=== PATIENT | female | born 1990 | race Caucasian/White ===

== ENCOUNTER 2018-06-16 02:12 | Inpatient (IN) | payer BC ==
[2018-06-16] MEDS ORDERED: Nalbuphine 10 MG/1 ML Vial IVPUSH PRN (02:49)
[2018-06-16] MEDS ORDERED: Tranexamic Acid 1,000 MG in Sodium Chloride 0.9% 100 ML IV PRN (02:49)
[2018-06-16] MEDS ORDERED: Butorphanol 1 MG/ML SDV IVPUSH PRN (02:49)
[2018-06-16] MEDS ORDERED: Carboprost Tromethamine 250 MCG/1 ML Amp IM PRN (02:49)
[2018-06-16] MEDS ORDERED: Water For Irrigation,Sterile 1,000 ML Container IRR PRN (02:49)
[2018-06-16] MEDS ORDERED: Misoprostol 200 MCG Tab PO PRN (02:49)
[2018-06-16] MEDS ORDERED: Sodium Chloride 0.9% 2.5 ML Syringe FLUSH PRN (02:49)
[2018-06-16] MEDS ORDERED: Sodium Chloride 0.9% 10 ML Syringe FLUSH PRN (02:49)
[2018-06-16] MEDS ORDERED: Lidocaine 1% 50 ML MDV INJECT PRN (02:49)
[2018-06-16] MEDS ORDERED: Methylergonovine 0.2 MG/1 ML Amp IM PRN (02:49)
[2018-06-16] MEDS ORDERED: Oxytocin/0.9 % Sodium Chloride 30 UNIT/500 ML BAG IV SCH (03:00)
[2018-06-16] MEDS: Lactated Ringers 1,000 ML IV SCH ×3 (03:05→06:08)
[2018-06-16] MEDS ORDERED: Ropivacaine 0.2% 2 MG/ML 20 ML SDV ONE (04:58)
[2018-06-16] MEDS ORDERED: ePHEDrine 50 MG/ML SDV ONE (05:31)
--- NOTE | 2018-06-16 05:45 | PCM.PREANE ---
Preanesthetic Assessment - Procedure Proposed Procedure: Labor epidural - Anesthesia/Transfusion/Family Hx Anesthesia History: Prior Anesthesia Without Reaction Family History of Anesthesia Reaction: No Transfusion History: No Prior Transfusion(s) - Review of Systems Other: Reports: None - Physical Assessment Height: 5 ft 5 in Weight: 86.636 kg ASA Class: 2 Mental Status: Alert & Oriented x3 Airway Class: Mallampati = 1 Dentition: Reports: Normal Dentition Thyro-Mental Finger Breadths: 3 Mouth Opening Finger Breadths: 3 ROM/Head Extension: Full - Lab Values: Laboratory Last Values WBC 10.45 K/uL (4.0-11.0) 06/16/18 03:01 RBC 4.16 M/uL (4.30-5.90) L 06/16/18 03:01 Hgb 11.6 g/dL (12.0-16.0) L 06/16/18 03:01 Hct 34.7 % (36.0-46.0) L 06/16/18 03:01 MCV 83.4 fL (80.0-98.0) 06/16/18 03:01 MCH 27.9 pg (27.0-32.0) 06/16/18 03:01 MCHC 33.4 g/dL (31.0-37.0) 06/16/18 03:01 RDW Std Deviation 42.1 fl (28.0-62.0) 06/16/18 03:01 RDW Coeff of Long 14 % (11.0-15.0) 06/16/18 03:01 Plt Count 215 K/uL (150-400) 06/16/18 03:01 MPV 8.90 fL (7.40-12.00) 06/16/18 03:01 Nucleated RBC % 0.0 /100WBC 06/16/18 03:01 Nucleated RBCs # 0 K/uL 06/16/18 03:01 Blood Type AB POSITIVE 06/16/18 03:01 Antibody Screen NEGATIVE 06/16/18 03:01 - Allergies Allergies/Adverse Reactions: Allergies Allergy/AdvReac Type Severity Reaction Status Date / Time gluten Allergy Diarrhea Verified 06/16/18 03:19 - Blood Blood Available: Yes Product(s) Available: PRBC - Acknowledgements Anesthesia Type Planned: Epidural Pt an Appropriate Candidate for the Planned Anesthesia: Yes Alternatives and Risks of Anesthesia Discussed w Pt/Guardian: Yes Pt/Guardian Understands and Agrees with Anesthesia Plan: Yes PreAnesthesia Questionnaire Gastrointestinal History: Reports: Celiac Disease 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: Musculoskeletal History: Reports: Other (See Below) (see radiology reports attatched to anesthesia record) - Past Surgical History Musculoskeletal Surgical History: Reports: Ganglion Cyst - Past Imaging History Past Imaging History: Reports: Other (See Below) (see attatched xray sheets attatched to Anesthesia record regarding lumbar spine) - SUBSTANCE USE Smoking Status *Q: Never Smoker Second Hand Smoke Exposure: No Recreational Drug Use History: No - CURRENT (IN HOUSE) MEDS Current Meds: Current Medications Butorphanol Tartrate (Stadol) 1 mg IVPUSH Q1H PRN PRN Reason: Pain Carboprost Tromethamine (Hemabate Ds) 250 mcg IM ASDIRECTED PRN PRN Reason: Post Hemorrhage Tranexamic Acid 1,000 mg/ (Sodium Chloride) 110 mls @ 660 mls/hr IV ONETIME PRN PRN Reason: Bleeding Lactated Ringer's (Ringers, Lactated) 1,000 mls @ 150 mls/hr IV ASDIRECTED [facility] Last Admin: 06/16/18 05:06 Dose: 999 mls/hr Oxytocin/Sodium Chloride (Oxytocin 30 Unit/500 Ml-Ns) 30 unit in 500 mls @ 500 mls/hr IV TITRATE [facility] Last Admin: 06/16/18 05:25 Dose: 2 mls/hr Lidocaine HCl (Xylocaine 1%) 50 ml INJECT ONETIME PRN PRN Reason: Laceration repair Methylergonovine Maleate (Methergine) 0.2 mg IM ASDIRECTED PRN PRN Reason: Post Hemorrhage Misoprostol (Cytotec) 200 mcg PO ONETIME PRN PRN Reason: Post Hemorrhage Nalbuphine HCl (Nubain) 10 mg IVPUSH Q1H PRN PRN Reason: Pain (severe 7-10) Sodium Chloride (Saline Flush) 10 ml FLUSH ASDIRECTED PRN PRN Reason: Keep Vein Open Sodium Chloride (Saline Flush) 2.5 ml FLUSH ASDIRECTED PRN PRN Reason: Keep Vein Open Sterile Water (Sterile Water For Irrigation) 1,000 ml IRR ASDIRECTED PRN PRN Reason: delivery Discontinued Medications Ephedrine Sulfate (Ephedrine Sulfate) Confirm Administered Dose 50 mg .ROUTE .[email or web address]-MED ONE Stop: 06/16/18 05:32 Fentanyl/Bupivacaine HCl (Ebqpcruw-Mhhrt-Op 2 Mcg/Ml-0.125%) Confirm Administered Dose 100 mls @ as directed EP .[employer]-MED ONE Stop: 06/16/18 04:59 Ropivacaine (Naropin 0.2%) Confirm Administered Dose 20 ml .ROUTE .[employer]-MED ONE Stop: 06/16/18 04:59
--- NOTE | 2018-06-16 10:09 | PCM.SN ---
- Free Text/Narrative Note: to see pt for increased perineal pain during labor w epidural. Now 8 + dilated. Epidural placed at t11, with good pain controll until this point. 15 ml bolus of 0.125% bupivicain with fentantl given through epidural catheter.
[2018-06-16] MEDS ORDERED: Oxytocin 10 Units/1 ML SDV ONE (10:26)
[2018-06-16] MEDS ORDERED: Acetaminophen 500 MG Tab PO PRN ×2 (10:45)
[2018-06-16] MEDS ORDERED: Witch Hazel Medicated Pads 40/Jar TOP PRN (10:45)
[2018-06-16] MEDS ORDERED: Ibuprofen 400 MG Tab PO PRN (10:45)
[2018-06-16] MEDS ORDERED: Docusate Sodium 100 MG Cap PO PRN (10:45)
[2018-06-16] MEDS ORDERED: Benzocaine/Menthol 20%-0.5% Spray 78 GM Cannister TOP PRN (10:45)
[2018-06-16] MEDS ORDERED: oxyCODONE 5 MG Tab PO PRN (10:45)
[2018-06-16] MEDS ORDERED: Bisacodyl 10 MG Supp RECTAL PRN (10:45)
[2018-06-16] MEDS ORDERED: Lanolin 100% Cream 7 GM Tube TOP PRN (10:45)
[2018-06-16] MEDS ORDERED: Ondansetron 4 MG Tab.DIS PO PRN (11:07)
--- NOTE | 2018-06-16 11:36 | OR ---
SURGEON: Marsha Oliver M.D. DATE OF PROCEDURE: 06/16/2018 PREOPERATIVE DIAGNOSES: 1. A 39 and 4 week intrauterine . 2. Spontaneous rupture of membranes. POSTOPERATIVE DIAGNOSES: 1. A 39 and 4 week intrauterine . 2. Spontaneous rupture of membranes. PROCEDURE: Spontaneous vaginal delivery with first-degree right labial laceration repaired. TECHNICAL PUBLICATIONS MANAGER: DEVON Menard. ANESTHESIA: Epidural. ESTIMATED BLOOD LOSS: 300 mL. FINDINGS: Viable female. score scores 8 at 1 minute, 9 at 5 minutes. Weight is pending. Spontaneous delivery, intact placenta, 3-vessel cord. DISPOSITION: Infant to nursery, mom in LDRP, stable. PROCEDURE IN DETAIL: Denisse is a 27-year-old, G3, P2, at 39 and 4 weeks gestational age, who presents on the early childhood education coordinator of 06/16/2018 with leakage of fluid. She was found to be spontaneously ruptured with clear fluid. She was already scheduled for an elective induction of labor today. Therefore, she was monitored and there was no evidence of active labor as she was found to be approximately 3 cm. She was initiated on Pitocin augmentation shortly after 5:00 a.m. She responded nicely to this, became increasingly uncomfortable, underwent regional anesthesia in the form of epidural and shortly before 9:00 a.m. was found to be 5 cm, 90% effaced, -1 station. She continued to labor through the morning hours, and shortly near 10:00 a.m., she was found to be complete, 100% effaced, +1 station, and feeling the urge to push. I was called for delivery. Upon my presentation, patient was placed in modified dorsal lithotomy position, was prepped and draped in usual aseptic manner. With the next 2 to 3 contractions was able to push to deliver the head to a +4 station followed by delivery of the infant's head, anterior shoulder, posterior shoulder, and remainder of the body without difficulty. A shoulder cord was noted to be present and was reduced manually. The infant's oropharynx and nares was bulb suctioned, cord was clamped x2 and cut. was handed off to her mother with the attending nursing staff at her side. Cord arterial, cord venous, cord blood sampling was obtained. Light suprapubic pressure was applied while the placenta was delivered spontaneously intact. Vigorous fundal uterine massage was then applied while 10 units of Pitocin was delivered IM as her IV was not working at this time. The patient tolerated the procedure well. Hemostasis appeared evident. Sponge count was correct. The patient remained in LDRP, infant to nursery. Hemostasis evident. RAMONA ELLER /[id number]
--- NOTE | 2018-06-16 12:59 | PCM48HPAN ---
Post Anesthesia Note - EVALUATION WITHIN 48HRS OF ANESTHETIC Vital Signs in Normal Range: Yes Patient Participated in Evaluation: Yes Respiratory Function Stable: Yes Airway Patent: Yes Cardiovascular Function Stable: Yes Hydration Status Stable: Yes Pain Control Satisfactory: Yes Nausea and Vomiting Control Satisfactory: Yes Mental Status Recovered: Yes - COMMENTS/OBSERVATIONS Free Text/Narrative:: Denies headache. States she had couple of hours where she feels the epidural didn't work. No other complaints at this time.
[2018-06-16] MEDS: Ibuprofen 800 MG Tab PO PRN (19:14)
[2018-06-17] MEDS: Ibuprofen 800 MG Tab PO PRN ×2 (03:16→10:01)
--- NOTE | 2018-06-17 08:02 | PCM.PNPP ---
<Malika Maravilla - Last Filed: 06/17/18 07:59> - General Info Date of Service: 06/17/18 Functional Status: Reports: Pain Controlled, Tolerating Diet, Ambulating, Urinating - Review of Systems General: Denies: Fever, Weakness, Fatigue Pulmonary: Denies: Shortness of Breath, Pleuritic Chest Pain, Cough Cardiovascular: Denies: Chest Pain, Palpitations, Dyspnea on Exertion Gastrointestinal: Denies: Abdominal Pain Genitourinary: Denies: Dysuria - General Info Date of Service: 06/17/18 - Patient Data Vital Signs - Most Recent: Last Vital Signs Temp 36.8 C 06/17/18 05:09 Pulse 63 06/17/18 05:09 Resp 17 06/17/18 05:09 BP 95/64 06/17/18 05:09 Pulse Ox 98 06/17/18 05:09 Weight - Most Recent: 86.636 kg Lab Results - Last 24 Hours: Laboratory Results - last 24 hr 06/16/18 06/17/18 Range/Units 10:15 05:25 Hgb 10.8 L (12.0-16.0) g/dL Hct 32.3 L (36.0-46.0) % Cord ABG pH 7.239 (7.18-7.38) Cord ABG Base Excess -3 (-10--2) Cord VBG pH 7.406 (7.25-7.45) Cord VBG Base Excess -2 (-10--2) Med Orders - Current: Current Medications Acetaminophen (Tylenol Extra Strength) 500 mg PO Q4H PRN PRN Reason: Pain Acetaminophen (Tylenol Extra Strength) 1,000 mg PO Q4H PRN PRN Reason: Pain Benzocaine/Menthol (Dermoplast Pain Relief 20%-0.5% Trion) 78 gm TOP ASDIRECTED PRN PRN Reason: Perineal Comfort Measure Bisacodyl (Dulcolax) 10 mg RECTAL ONETIME PRN PRN Reason: Constipation Docusate Sodium (Colace) 100 mg PO BID PRN PRN Reason: Constipation Emollient Ointment (Lansinoh Hpa) 0 gm TOP ASDIRECTED PRN PRN Reason: Sore Nipples Ibuprofen (Motrin) 400 mg PO Q4H PRN PRN Reason: Pain Ibuprofen (Motrin) 800 mg PO Q6H PRN PRN Reason: Pain Last Admin: 06/17/18 03:16 Dose: 800 mg Ondansetron HCl (Zofran Odt) 4 mg PO Q6H PRN PRN Reason: Nausea/Vomiting Last Admin: 06/16/18 11:29 Dose: 4 mg Oxycodone HCl (Oxycodone) 5 mg PO Q2H PRN PRN Reason: Pain Witch Eve (Tucks) 1 pad TOP ASDIRECTED PRN PRN Reason: comfort care Discontinued Medications Butorphanol Tartrate (Stadol) 1 mg IVPUSH Q1H PRN PRN Reason: Pain Carboprost Tromethamine (Hemabate Ds) 250 mcg IM ASDIRECTED PRN PRN Reason: Post Hemorrhage Ephedrine Sulfate (Ephedrine Sulfate) Confirm Administered Dose 50 mg .ROUTE .STK-MED ONE Stop: 06/16/18 05:32 Tranexamic Acid 1,000 mg/ (Sodium Chloride) 110 mls @ 660 mls/hr IV ONETIME PRN PRN Reason: Bleeding Lactated Ringer's (Ringers, Lactated) 1,000 mls @ 150 mls/hr IV ASDIRECTED [facility] Last Admin: 06/16/18 06:08 Dose: 125 mls/hr Oxytocin/Sodium Chloride (Oxytocin 30 Unit/500 Ml-Ns) 30 unit in 500 mls @ 500 mls/hr IV TITRATE [facility] Last Infusion: 06/16/18 07:26 Dose: 10 mls/hr Fentanyl/Bupivacaine HCl (Phkusrbq-Ssimk-Fh 2 Mcg/Ml-0.125%) Confirm Administered Dose 100 mls @ as directed EP .STK-MED ONE Stop: 06/16/18 04:59 Lidocaine HCl (Xylocaine 1%) 50 ml INJECT ONETIME PRN PRN Reason: Laceration repair Methylergonovine Maleate (Methergine) 0.2 mg IM ASDIRECTED PRN PRN Reason: Post Hemorrhage Misoprostol (Cytotec) 200 mcg PO ONETIME PRN PRN Reason: Post Hemorrhage Nalbuphine HCl (Nubain) 10 mg IVPUSH Q1H PRN PRN Reason: Pain (severe 7-10) Oxytocin (Pitocin) Confirm Administered Dose 10 unit .ROUTE .STK-MED ONE Stop: 06/16/18 10:27 Last Admin: 06/16/18 10:28 Dose: 10 unit Ropivacaine (Naropin 0.2%) Confirm Administered Dose 20 ml .ROUTE .STK-MED ONE Stop: 06/16/18 04:59 Sodium Chloride (Saline Flush) 10 ml FLUSH ASDIRECTED PRN PRN Reason: Keep Vein Open Sodium Chloride (Saline Flush) 2.5 ml FLUSH ASDIRECTED PRN PRN Reason: Keep Vein Open Sterile Water (Sterile Water For Irrigation) 1,000 ml IRR ASDIRECTED PRN PRN Reason: delivery - Infant Interaction Infant Disposition, : [place] in Room with Family Infant Interaction: Not Applicable Infant Feeding: Breastfed Infant; Nursed Well Support Person: - Recovery Exam Fundal Tone: Firm Fundal Level: At Umbilicus Fundal Placement: Midline Lochia Amount: Scant Lochia Color: Rubra/Red Perineum Description: Other (see below) Other Perinuem Description: 1st deg laceration Episiotomy/Laceration: Approximated Bladder Status: Voiding - Exam General: Alert, Oriented Lungs: Clear to Auscultation, Normal Respiratory Effort Cardiovascular: Regular Rate, Regular Rhythm GI/Abdominal Exam: Normal Bowel Sounds, Soft, Non-Tender, No Distention, No Mass , Pelvis Stable Extremities: Normal Inspection, Normal Capillary Refill, Pedal Edema (trace) Skin: Warm, Dry, Intact - Problem List & Annotations (1) Vaginal delivery SNOMED Code(s): 425063855 Code(s): O80 - ENCOUNTER FOR FULL-TERM UNCOMPLICATED DELIVERY Status: Acute Current Visit: Yes - Problem List Review Problem List Initiated/Reviewed/Updated: Yes - Assessment Assessment:: PPD #1 s/p . Minimal pain and lochia. Breast feeding well. Discharge home today. - Plan Plan:: Discharge instructions reviewed. Pelvic rest for 6 weeks. Continue PNV while breast feeding. Can use OTC ibuprofen/tylenol as needed for pain. Instructed patient to call if she develops fever greater than 101 or bleeding through a large pad an hour. F/U with [facility] in 6 weeks. <Marsha Oliver - Last Filed: 06/17/18 09:04> - Patient Data Vital Signs - Most Recent: Last Vital Signs Temp 36.8 C 06/17/18 05:09 Pulse 63 06/17/18 05:09 Resp 17 06/17/18 05:09 BP 95/64 06/17/18 05:09 Pulse Ox 98 06/17/18 05:09 Lab Results - Last 24 Hours: Laboratory Results - last 24 hr 06/16/18 06/17/18 Range/Units 10:15 05:25 Hgb 10.8 L (12.0-16.0) g/dL Hct 32.3 L (36.0-46.0) % Cord ABG pH 7.239 (7.18-7.38) Cord ABG Base Excess -3 (-10--2) Cord VBG pH 7.406 (7.25-7.45) Cord VBG Base Excess -2 (-10--2) Med Orders - Current: Current Medications Acetaminophen (Tylenol Extra Strength) 500 mg PO Q4H PRN PRN Reason: Pain Acetaminophen (Tylenol Extra Strength) 1,000 mg PO Q4H PRN PRN Reason: Pain Benzocaine/Menthol (Dermoplast Pain Relief 20%-0.5% Trion) 78 gm TOP ASDIRECTED PRN PRN Reason: Perineal Comfort Measure Bisacodyl (Dulcolax) 10 mg RECTAL ONETIME PRN PRN Reason: Constipation Docusate Sodium (Colace) 100 mg PO BID PRN PRN Reason: Constipation Emollient Ointment (Lansinoh Hpa) 0 gm TOP ASDIRECTED PRN PRN Reason: Sore Nipples Ibuprofen (Motrin) 400 mg PO Q4H PRN PRN Reason: Pain Ibuprofen (Motrin) 800 mg PO Q6H PRN PRN Reason: Pain Last Admin: 06/17/18 03:16 Dose: 800 mg Ondansetron HCl (Zofran Odt) 4 mg PO Q6H PRN PRN Reason: Nausea/Vomiting Last Admin: 06/16/18 11:29 Dose: 4 mg Oxycodone HCl (Oxycodone) 5 mg PO Q2H PRN PRN Reason: Pain Witch Eve (Tucks) 1 pad TOP ASDIRECTED PRN PRN Reason: comfort care Discontinued Medications Butorphanol Tartrate (Stadol) 1 mg IVPUSH Q1H PRN PRN Reason: Pain Carboprost Tromethamine (Hemabate Ds) 250 mcg IM ASDIRECTED PRN PRN Reason: Post Hemorrhage Ephedrine Sulfate (Ephedrine Sulfate) Confirm Administered Dose 50 mg .ROUTE .STK-MED ONE Stop: 06/16/18 05:32 Tranexamic Acid 1,000 mg/ (Sodium Chloride) 110 mls @ 660 mls/hr IV ONETIME PRN PRN Reason: Bleeding Lactated Ringer's (Ringers, Lactated) 1,000 mls @ 150 mls/hr IV ASDIRECTED [facility] Last Admin: 06/16/18 06:08 Dose: 125 mls/hr Oxytocin/Sodium Chloride (Oxytocin 30 Unit/500 Ml-Ns) 30 unit in 500 mls @ 500 mls/hr IV TITRATE [facility] Last Infusion: 06/16/18 07:26 Dose: 10 mls/hr Fentanyl/Bupivacaine HCl (Opqhihop-Hcbcr-Dr 2 Mcg/Ml-0.125%) Confirm Administered Dose 100 mls @ as directed EP .[employer]-MED ONE Stop: 06/16/18 04:59 Lidocaine HCl (Xylocaine 1%) 50 ml INJECT ONETIME PRN PRN Reason: Laceration repair Methylergonovine Maleate (Methergine) 0.2 mg IM ASDIRECTED PRN PRN Reason: Post Hemorrhage Misoprostol (Cytotec) 200 mcg PO ONETIME PRN PRN Reason: Post Hemorrhage Nalbuphine HCl (Nubain) 10 mg IVPUSH Q1H PRN PRN Reason: Pain (severe 7-10) Oxytocin (Pitocin) Confirm Administered Dose 10 unit .ROUTE .[employer] ONE Stop: 06/16/18 10:27 Last Admin: 06/16/18 10:28 Dose: 10 unit Ropivacaine (Naropin 0.2%) Confirm Administered Dose 20 ml .ROUTE .[employer]-MED ONE Stop: 06/16/18 04:59 Sodium Chloride (Saline Flush) 10 ml FLUSH ASDIRECTED PRN PRN Reason: Keep Vein Open Sodium Chloride (Saline Flush) 2.5 ml FLUSH ASDIRECTED PRN PRN Reason: Keep Vein Open Sterile Water (Sterile Water For Irrigation) 1,000 ml IRR ASDIRECTED PRN PRN Reason: delivery - My Orders Last 24 Hours: My Active Orders 06/16/18 10:45 Patient Status [ADT] Routine May Shower [RC] ASDIRECTED Up ad Antonia [RC] ASDIRECTED Vital Signs [RC] PER UNIT ROUTINE Acetaminophen [Tylenol Extra Strength] 1,000 mg PO Q4H PRN Acetaminophen [Tylenol Extra Strength] 500 mg PO Q4H PRN Benzocaine/Menthol [Dermoplast Pain Relief 20%-0.5% Trion] 78 gm TOP ASDIRECTED PRN Bisacodyl [Dulcolax] 10 mg RECTAL ONETIME PRN Docusate Sodium [Colace] 100 mg PO BID PRN Ibuprofen [Motrin] 400 mg PO Q4H PRN Ibuprofen [Motrin] 800 mg PO Q6H PRN Lanolin [Lansinoh HPA] See Dose Instructions TOP ASDIRECTED PRN Witch Eve [Tucks] 1 pad TOP ASDIRECTED PRN oxyCODONE 5 mg PO Q2H PRN Assess Lochia [WOMSER] Per Unit Routine Assess Uterine Involution [WOMSER] Per Unit Routine Peripheral IV Discontinue [OM.PC] Routine Resuscitation Status Routine 06/16/18 11:07 Ondansetron [Zofran ODT] 4 mg PO Q6H PRN 06/16/18 Lunch Regular Diet [DIET] - Plan Plan:: Patient seen and examined--agree with above.
== END 2018-06-17 12:15 | disposition home or self-care (01) | DRG 560 ==
LOC: MW.OBCHECK 02:12 → MW.OB 02:15 → MW.OBCHECK 02:49 → MW.OB 02:49 → OBSVTOIN 10:45 → MW.OB 15:38
PROVIDERS: ADMIT Obstetrics & Gynecology; ATTEND Obstetrics & Gynecology
PROC: 10E0XZZ Delivery of Products of Conception, External Approach (ICD-10-PCS; principal; 2018-06-16)
PROC: 3E033VJ Introduction of Other Hormone into Peripheral Vein, Percutaneous Approach (ICD-10-PCS; 2018-06-16)
PROC: 0HQ9XZZ Repair Perineum Skin, External Approach (ICD-10-PCS; 2018-06-16)
PROC: 00HU33Z Insertion of Infusion Device into Spinal Canal, Percutaneous Approach (ICD-10-PCS; 2018-06-16)
DX: O42.02 Full-term premature rupture of membranes, onset of labor within 24 hours of rupture (principal); O70.0 First degree perineal laceration during delivery; Z3A.39 39 weeks gestation of pregnancy; Z37.0 Single live birth
CPT/HCPCS: 36415; 59025; 59409; 82803; 85014; 85018; 85027; 86850; 86900; 86901; A9270-GY; J2590; J2795; J7120

== ENCOUNTER 2020-11-18 12:30 | Inpatient (IN) | payer BC ==
[2020-11-18] MEDS: Lactated Ringers 1,000 ML IV SCH ×3 (13:45→19:22)
[2020-11-18] MEDS ORDERED: Ondansetron 4 MG/2 ML SDV IVPUSH PRN (15:21)
[2020-11-18] MEDS ORDERED: Sodium Chloride 0.9% 2.5 ML Syringe FLUSH PRN (15:21)
[2020-11-18] MEDS ORDERED: Tranexamic Acid 1,000 MG in Sodium Chloride 0.9% 100 ML IV PRN (15:21)
[2020-11-18] MEDS ORDERED: Water For Irrigation,Sterile 1,000 ML Container IRR PRN (15:21)
[2020-11-18] MEDS ORDERED: Misoprostol 200 MCG Tab PO PRN (15:21)
[2020-11-18] MEDS ORDERED: Terbutaline 1 MG/ML SDV SUBCUT PRN (15:21)
[2020-11-18] MEDS ORDERED: Methylergonovine 0.2 MG/1 ML Amp IM PRN (15:21)
[2020-11-18] MEDS ORDERED: Sodium Chloride 0.9% 10 ML SDV IV PRN (15:21)
[2020-11-18] MEDS ORDERED: Carboprost Tromethamine 250 MCG/1 ML Amp IM PRN (15:21)
[2020-11-18] MEDS ORDERED: Sodium Chloride 0.9% 10 ML Syringe FLUSH PRN (15:21)
[2020-11-18] MEDS ORDERED: Butorphanol 1 MG/ML SDV IVPUSH PRN (15:21)
[2020-11-18] MEDS ORDERED: Lidocaine 1% 50 ML MDV INJECT PRN (15:21)
[2020-11-18] MEDS ORDERED: Oxytocin/0.9 % Sodium Chloride 30 UNIT/500 ML BAG IV SCH (15:30)
[2020-11-18] MEDS ORDERED: Oxytocin/Lactated Ringers 30 UNIT/500 ML BAG IV SCH (15:30)
[2020-11-18] MEDS ORDERED: fentaNYL 100 MCG/2 ML SDV ONE (19:14)
[2020-11-18] MEDS ORDERED: Bupivicaine/fentaNYL/NS 250 ML ONE (19:15)
[2020-11-19] MEDS ORDERED: Docusate Sodium 100 MG Cap PO PRN (01:36)
[2020-11-19] MEDS ORDERED: oxyCODONE 5 MG Tab PO PRN (01:36)
[2020-11-19] MEDS ORDERED: Lanolin 100% Cream 7 GM Tube TOP PRN (01:36)
[2020-11-19] MEDS ORDERED: Benzocaine/Menthol 20%-0.5% Spray 78 GM Cannister TOP PRN (01:36)
[2020-11-19] MEDS ORDERED: Acetaminophen 500 MG Tab PO PRN (01:36)
[2020-11-19] MEDS ORDERED: Ibuprofen 400 MG Tab PO PRN (01:36)
[2020-11-19] MEDS ORDERED: Ondansetron 4 MG/2 ML SDV IVPUSH PRN (01:36)
[2020-11-19] MEDS ORDERED: Witch Hazel Medicated Pads 40/Jar TOP PRN (01:36)
[2020-11-19] MEDS ORDERED: Bisacodyl 10 MG Supp RECTAL PRN (01:36)
--- NOTE | 2020-11-19 01:45 | PCM.OPNOTE ---
- General Post-Op/Procedure Note Date of Surgery/Procedure: 11/19/20 Operative Procedure(s): /1st left labial laceration Findings: Viable male APGARs 8, 9 weight 3500 gm. Spontaneous delivery intact placenta with 3V cord Pre Op Diagnosis: 39 week IUP. Elective IOL Post-Op Diagnosis: Same Anesthesia Technique: Epidural Primary Surgeon: Marsha Oliver EBL in mLs: 200 Complications: None Condition: Good Free Text/Narrative:: Intake & Output 11/18/20 11/18/20 11/19/20 14:59 22:59 06:59 Intake Total 999 Balance 999 Dictation [id number]
--- NOTE | 2020-11-19 03:13 | OR ---
SURGEON: Marsha Oliver M.D. DATE OF PROCEDURE: 11/19/2020 PREOPERATIVE DIAGNOSES: 1. A 39-week intrauterine . 2. Elective induction of labor. POSTOPERATIVE DIAGNOSES: 1. A 39-week intrauterine . 2. Elective induction of labor. PROCEDURE: Spontaneous vaginal delivery, first-degree right labial laceration repair. PRIMARY SURGEON: Marsha Oliver M.D. ANESTHESIA: Epidural. ESTIMATED BLOOD LOSS: 200 mL. COMPLICATIONS: None known. FINDINGS: Viable male. scores 8 at one minute and 9 at five minutes. Weight of 3500 g. Spontaneous delivery, intact placenta, 3-vessel cord. DISPOSITION: Infant to nursery. Mom in LDRP. PROCEDURE DETAILS: The patient is a 30-year-old female, G4, P3, at 39 weeks' gestational age, who presents for scheduled elective induction of labor on the afternoon of 11/18/2020. Upon admission, routine labs were drawn. She is COVID negative. IV hydration was initiated. Pitocin was initiated. She underwent amniotomy with clear return of fluid. At that time, she was found to be 2 to 3 cm, 60% effaced, -2 station. The patient became increasingly uncomfortable and underwent regional anesthesia in the form of epidural. She underwent this satisfactorily and became more comfortable. The patient continued to make progress through the evening hours with Pitocin induction. heart tones remained category 1. As she progressed and began transitioning, there were some variable deceleration noted. Shortly before 1:00 a.m., the patient was found to be complete, 100% effaced, at a +2 station. I was called for delivery. Upon my arrival, the patient was placed in the modified dorsal lithotomy position, was prepped and draped in the usual aseptic manner, began pushing efforts, pushed adequately, was able to deliver the 's head atraumatically spontaneously, followed by anterior shoulder, posterior shoulder, and remainder of the body without difficulty. The infant's oropharynx and nares were bulb suctioned. The was handed off to the mother with attending nursery staff at the side. After a delay, the cord was clamped x2 and cut. Cord arterial, cord venous, and cord blood sampling were obtained. Light pressure was applied. The placenta was delivered spontaneously intact. Vigorous fundal uterine massage was then applied while 30 units of Pitocin was delivered in 500 mL of IV fluid. Upon inspection of cervix, vaginal sidewall, and perineum, there was found to be a right labial laceration that was repaired using 4-0 Vicryl in a continuous running fashion. Hemostasis appeared evident. Sponge, instrument, and needle count was correct. The patient remained in LDRP. Infant to nursery. RAMONA / DAPHNIE /[id number]
--- NOTE | 2020-11-19 07:25 | PCM48HPAN ---
Post Anesthesia Note - EVALUATION WITHIN 48HRS OF ANESTHETIC Vital Signs in Normal Range: Yes Patient Participated in Evaluation: Yes Respiratory Function Stable: Yes Airway Patent: Yes Cardiovascular Function Stable: Yes Hydration Status Stable: Yes Pain Control Satisfactory: Yes Nausea and Vomiting Control Satisfactory: Yes Mental Status Recovered: Yes
--- NOTE | 2020-11-19 08:07 | PCM.PREANE ---
Preanesthetic Assessment - Anesthesia/Transfusion/Family Hx Anesthesia History: No Prior Anesthesia Family History of Anesthesia Reaction: No Transfusion History: No Prior Transfusion(s) Intubation History: Unknown - Review of Systems General: No Symptoms Pulmonary: No Symptoms Cardiovascular: No Symptoms Gastrointestinal: Abdominal Pain (labor pain) Neurological: No Symptoms Other: Reports: None - Physical Assessment Height: 5 ft 5 in Weight: 88.995 kg ASA Class: 2 Mental Status: Alert & Oriented x3 Airway Class: Mallampati = 1 Dentition: Reports: Normal Dentition Thyro-Mental Finger Breadths: 3 Mouth Opening Finger Breadths: 3 ROM/Head Extension: Full Lungs: Clear to Auscultation, Normal Respiratory Effort Cardiovascular: Regular Rate, Regular Rhythm - Lab Values: Laboratory Last Values WBC 8.15 K/uL (4.0-11.0) 11/18/20 14:45 RBC 4.13 M/uL (4.30-5.90) L 11/18/20 14:45 Hgb 12.2 g/dL (12.0-16.0) 11/18/20 14:45 Hct 36.7 % (36.0-46.0) 11/18/20 14:45 MCV 88.9 fL (80.0-98.0) 11/18/20 14:45 MCH 29.5 pg (27.0-32.0) 11/18/20 14:45 MCHC 33.2 g/dL (31.0-37.0) 11/18/20 14:45 RDW Std Deviation 45.6 fl (28.0-62.0) 11/18/20 14:45 RDW Coeff of Long 14 % (11.0-15.0) 11/18/20 14:45 Plt Count 256 K/uL (150-400) 11/18/20 14:45 MPV 9.20 fL (7.40-12.00) 11/18/20 14:45 Nucleated RBC % 0.0 /100WBC 11/18/20 14:45 Nucleated RBCs # 0 K/uL 11/18/20 14:45 Cord ABG pH 7.257 (7.18-7.38) 11/19/20 01:14 Cord ABG Base Excess -2 (-10--2) 11/19/20 01:14 Cord VBG pH 7.330 (7.25-7.45) 11/19/20 01:14 Cord VBG Base Excess -3 (-10--2) 11/19/20 01:14 Blood Type AB POSITIVE 11/18/20 14:45 Antibody Screen NEGATIVE 11/18/20 14:45 - Allergies Allergies/Adverse Reactions: Allergies Allergy/AdvReac Type Severity Reaction Status Date / Time gluten Allergy Diarrhea Verified 06/16/18 03:19 - Blood Blood Available: No - Anesthesia Plan Pre-Op Medication Ordered: None - Acknowledgements Anesthesia Type Planned: Epidural Pt an Appropriate Candidate for the Planned Anesthesia: Yes Alternatives and Risks of Anesthesia Discussed w Pt/Guardian: Yes Pt/Guardian Understands and Agrees with Anesthesia Plan: Yes PreAnesthesia Questionnaire - Past Health History Medical/Surgical History: Denies Medical/Surgical History Gastrointestinal History: Reports: Celiac Disease [employer] History: Reports: Musculoskeletal History: Reports: Other (See Below) - Infectious Disease History Infectious Disease History: Reports: Chicken Pox - Past Surgical History Head Surgeries/Procedures: Reports: None GI Surgical History: Reports: None Musculoskeletal Surgical History: Reports: Ganglion Cyst Other Musculoskeletal Surgeries/Procedures:: L2L3 congenital fusion of spine - Past Imaging History Past Imaging History: Reports: Other (See Below) (see attatched xray sheets attatched to Anesthesia record regarding lumbar spine) - SUBSTANCE USE Tobacco Use Status *Q: Never Tobacco User Tobacco Use Within Last Twelve Months: No Second Hand Smoke Exposure: No Recreational Drug Use History: No - HOME MEDS Home Medications: Home Meds Cetirizine HCl [Zyrtec] 10 mg PO DAILY 11/18/20 [History] Pantoprazole [ProTONIX] 40 mg PO DAILY 11/18/20 [History] Pnv No.95/Ferrous Fum/Folic AC [ Caplet] 1 tab PO DAILY 11/18/20 [H istory] - CURRENT (IN HOUSE) MEDS Current Meds: Current Medications Acetaminophen (Tylenol Extra Strength) 500 mg PO Q4H PRN PRN Reason: Pain Acetaminophen (Tylenol Extra Strength) 1,000 mg PO Q4H PRN PRN Reason: Pain Benzocaine/Menthol (Dermoplast Pain Relief 20%-0.5% [place]) 78 gm TOP ASDIRECTED PRN PRN Reason: Perineal Comfort Measure Bisacodyl (Dulcolax) 10 mg RECTAL ONETIME PRN PRN Reason: Constipation Butorphanol Tartrate (Stadol) 1 mg IVPUSH Q1H PRN PRN Reason: Pain Carboprost Tromethamine (Hemabate Ds) 250 mcg IM ASDIRECTED PRN PRN Reason: Post Hemorrhage Docusate Sodium (Colace) 100 mg PO BID PRN PRN Reason: Constipation Emollient Ointment (Lansinoh Hpa) 0 gm TOP ASDIRECTED PRN PRN Reason: Sore Nipples Oxytocin/Sodium Chloride (Oxytocin 30 Unit/500 Ml-Ns) 30 unit in 500 mls @ 999 mls/hr IV TITRATE CHAUNCEY Tranexamic Acid 1,000 mg/ (Sodium Chloride) 110 mls @ 660 mls/hr IV ONETIME PRN PRN Reason: Bleeding Oxytocin/Lactated Ringer's (Pitocin In Lr 30 Units/500 Ml) 30 unit in 500 mls @ 2 mls/hr IV TITRATE CHAUNCEY; Protocol Last Titration: 11/19/20 01:16 Dose: 999 munits/min, 999 mls/hr Documented by: Lactated Ringer's (Ringers, Lactated) 1,000 mls @ 150 mls/hr IV ASDIRECTED CHAUNCEY Last Admin: 11/18/20 19:22 Dose: 150 mls/hr Documented by: Ibuprofen (Motrin) 400 mg PO Q4H PRN PRN Reason: Pain Ibuprofen (Motrin) 800 mg PO Q6H PRN PRN Reason: Pain Lidocaine HCl (Xylocaine 1%) 50 ml INJECT ONETIME PRN PRN Reason: Laceration repair Methylergonovine Maleate (Methergine) 0.2 mg IM ASDIRECTED PRN PRN Reason: Post Hemorrhage Misoprostol (Cytotec) 200 mcg PO ONETIME PRN PRN Reason: Post Hemorrhage Ondansetron HCl (Zofran) 4 mg IVPUSH Q6H PRN PRN Reason: Nausea/Vomiting Ondansetron HCl (Zofran) 4 mg IVPUSH Q6H PRN PRN Reason: Nausea/Vomiting Oxycodone HCl (Oxycodone) 5 mg PO Q2H PRN PRN Reason: Pain Sodium Chloride (Saline Flush) 10 ml FLUSH ASDIRECTED PRN PRN Reason: Keep Vein Open Sodium Chloride (Saline Flush) 2.5 ml FLUSH ASDIRECTED PRN PRN Reason: Keep Vein Open Sodium Chloride (Normal Saline) 10 ml IV ASDIRECTED PRN PRN Reason: IV Use Sterile Water (Sterile Water For Irrigation) 1,000 ml IRR ASDIRECTED PRN PRN Reason: delivery Terbutaline Sulfate (Brethine) 0.25 mg SUBCUT ASDIRECTED PRN PRN Reason: Tacysystole Witch Eve (Tucks) 1 pad TOP ASDIRECTED PRN PRN Reason: comfort care Discontinued Medications Fentanyl (Sublimaze) Confirm Administered Dose 100 mcg .ROUTE .STTandem Transit-MED ONE Stop: 11/18/20 19:15 Fentanyl/Bupivacaine HCl (Fentanyl/Bupivacaine/Ns 2 Mcg-0.125% 250 Ml) Confirm Administered Dose 250 mls @ as directed .ROUTE .ARTtwo50-MED ONE Stop: 11/18/20 19:16
[2020-11-19] MEDS: Ibuprofen 800 MG Tab PO PRN ×2 (08:35→15:27)
--- NOTE | 2020-11-19 11:16 | PCM.PNPP ---
- General Info Date of Service: 11/19/20 Functional Status: Reports: Pain Controlled, Tolerating Diet, Ambulating, Urinating - Review of Systems General: Reports: Fatigue. Denies: Fever, Weakness Pulmonary: Denies: Shortness of Breath Cardiovascular: Denies: Chest Pain, Palpitations, Lightheadedness Gastrointestinal: Denies: Abdominal Pain, Nausea, Vomiting Genitourinary: Denies: Flank Pain Musculoskeletal: Reports: No Symptoms Skin: Reports: No Symptoms Neurological: Reports: No Symptoms Psychiatric: Reports: No Symptoms - General Info Date of Service: 11/19/20 - Patient Data Vital Signs - Most Recent: Last Vital Signs Temp 36.4 C 11/19/20 08:45 Pulse 61 11/19/20 08:45 Resp 18 11/19/20 08:45 BP 102/58 L 11/19/20 08:45 Pulse Ox 96 11/19/20 08:45 Weight - Most Recent: 88.995 kg I&O - Last 24 Hours: Intake & Output 11/18/20 11/19/20 11/19/20 22:59 06:59 14:59 Intake Total 999 Balance 999 Lab Results - Last 24 Hours: Laboratory Results - last 24 hr 11/18/20 11/18/20 11/19/20 Range/Units 14:45 14:45 01:14 WBC 8.15 (4.0-11.0) K/uL RBC 4.13 L (4.30-5.90) M/uL Hgb 12.2 (12.0-16.0) g/dL Hct 36.7 (36.0-46.0) % MCV 88.9 (80.0-98.0) fL MCH 29.5 (27.0-32.0) pg MCHC 33.2 (31.0-37.0) g/dL RDW Std Deviation 45.6 (28.0-62.0) fl RDW Coeff of Long 14 (11.0-15.0) % Plt Count 256 (150-400) K/uL MPV 9.20 (7.40-12.00) fL Nucleated RBC % 0.0 /100WBC Nucleated RBCs # 0 K/uL Cord ABG pH 7.257 (7.18-7.38) Cord ABG Base Excess -2 (-10--2) Cord VBG pH 7.330 (7.25-7.45) Cord VBG Base Excess -3 (-10--2) Blood Type AB POSITIVE Antibody Screen NEGATIVE Med Orders - Current: Current Medications Acetaminophen (Tylenol Extra Strength) 500 mg PO Q4H PRN PRN Reason: Pain Acetaminophen (Tylenol Extra Strength) 1,000 mg PO Q4H PRN PRN Reason: Pain Benzocaine/Menthol (Dermoplast Pain Relief 20%-0.5% [place]) 78 gm TOP ASDIRECTED PRN PRN Reason: Perineal Comfort Measure Bisacodyl (Dulcolax) 10 mg RECTAL ONETIME PRN PRN Reason: Constipation Butorphanol Tartrate (Stadol) 1 mg IVPUSH Q1H PRN PRN Reason: Pain Carboprost Tromethamine (Hemabate Ds) 250 mcg IM ASDIRECTED PRN PRN Reason: Post Hemorrhage Docusate Sodium (Colace) 100 mg PO BID PRN PRN Reason: Constipation Emollient Ointment (Lansinoh Hpa) 0 gm TOP ASDIRECTED PRN PRN Reason: Sore Nipples Oxytocin/Sodium Chloride (Oxytocin 30 Unit/500 Ml-Ns) 30 unit in 500 mls @ 999 mls/hr IV TITRATE CHAUNCEY Tranexamic Acid 1,000 mg/ (Sodium Chloride) 110 mls @ 660 mls/hr IV ONETIME PRN PRN Reason: Bleeding Oxytocin/Lactated Ringer's (Pitocin In Lr 30 Units/500 Ml) 30 unit in 500 mls @ 2 mls/hr IV TITRATE CHAUNCEY; Protocol Last Titration: 11/19/20 01:16 Dose: 999 munits/min, 999 mls/hr Documented by: Lactated Ringer's (Ringers, Lactated) 1,000 mls @ 150 mls/hr IV ASDIRECTED CHAUNCEY Last Admin: 11/18/20 19:22 Dose: 150 mls/hr Documented by: Ibuprofen (Motrin) 400 mg PO Q4H PRN PRN Reason: Pain Ibuprofen (Motrin) 800 mg PO Q6H PRN PRN Reason: Pain Last Admin: 11/19/20 08:35 Dose: 800 mg Documented by: Lidocaine HCl (Xylocaine 1%) 50 ml INJECT ONETIME PRN PRN Reason: Laceration repair Methylergonovine Maleate (Methergine) 0.2 mg IM ASDIRECTED PRN PRN Reason: Post Hemorrhage Misoprostol (Cytotec) 200 mcg PO ONETIME PRN PRN Reason: Post Hemorrhage Ondansetron HCl (Zofran) 4 mg IVPUSH Q6H PRN PRN Reason: Nausea/Vomiting Ondansetron HCl (Zofran) 4 mg IVPUSH Q6H PRN PRN Reason: Nausea/Vomiting Oxycodone HCl (Oxycodone) 5 mg PO Q2H PRN PRN Reason: Pain Sodium Chloride (Saline Flush) 10 ml FLUSH ASDIRECTED PRN PRN Reason: Keep Vein Open Sodium Chloride (Saline Flush) 2.5 ml FLUSH ASDIRECTED PRN PRN Reason: Keep Vein Open Sodium Chloride (Normal Saline) 10 ml IV ASDIRECTED PRN PRN Reason: IV Use Sterile Water (Sterile Water For Irrigation) 1,000 ml IRR ASDIRECTED PRN PRN Reason: delivery Terbutaline Sulfate (Brethine) 0.25 mg SUBCUT ASDIRECTED PRN PRN Reason: Tacysystole Witch Eve (Tucks) 1 pad TOP ASDIRECTED PRN PRN Reason: comfort care Discontinued Medications Fentanyl (Sublimaze) Confirm Administered Dose 100 mcg .ROUTE .STK-MED ONE Stop: 11/18/20 19:15 Fentanyl/Bupivacaine HCl (Fentanyl/Bupivacaine/Ns 2 Mcg-0.125% 250 Ml) Confirm Administered Dose 250 mls @ as directed .ROUTE .STK-MED ONE Stop: 11/18/20 19:16 - Infant Interaction Support Person: - Recovery Exam Fundal Tone: Firm Fundal Level: At Umbilicus Fundal Placement: Midline Lochia Amount: Small Lochia Color: Rubra/Red Perineum Description: Intact, Minimal Bruising/Swelling Bladder Status: Voiding - Exam General: Alert, Oriented Lungs: Normal Respiratory Effort Cardiovascular: Regular Rhythm Extremities: Normal Inspection Skin: Warm, Dry, Intact - Problem List & Annotations (1) Vaginal delivery SNOMED Code(s): 810778292 Code(s): O80 - ENCOUNTER FOR FULL-TERM UNCOMPLICATED DELIVERY Status: Acute Current Visit: No - Problem List Review Problem List Initiated/Reviewed/Updated: Yes - My Orders Last 24 Hours: My Active Orders 11/18/20 14:45 RPR (SYPHILIS SERO) W/ RFLX [REF] Routine 11/18/20 15:21 Butorphanol [Stadol] 1 mg IVPUSH Q1H PRN Carboprost Tromethamine [Hemabate DS] 250 mcg IM ASDIRECTED PRN Lidocaine 1% [Xylocaine 1%] 50 ml INJECT ONETIME PRN Methylergonovine [Methergine] 0.2 mg IM ASDIRECTED PRN Ondansetron [Zofran] 4 mg IVPUSH Q6H PRN Sodium Chloride 0.9% [Normal Saline] 10 ml IV ASDIRECTED PRN Sodium Chloride 0.9% [Saline Flush] 10 ml FLUSH ASDIRECTED PRN Sodium Chloride 0.9% [Saline Flush] 2.5 ml FLUSH ASDIRECTED PRN Terbutaline [Brethine] 0.25 mg SUBCUT ASDIRECTED PRN Tranexamic Acid [Cyklokapron] 1,000 mg Sodium Chloride 0.9% [Normal Saline] 100 ml IV ONETIME Water For Irrigation,Sterile [Sterile Water for Irrigation] 1,000 ml IRR ASDIRECTED PRN miSOPROStoL [Cytotec] 200 mcg PO ONETIME PRN Resuscitation Status Routine 11/18/20 15:22 Patient Status [ADT] Routine Oxygen Therapy [RC] ASDIRECTED Vital Signs [RC] PER UNIT ROUTINE Vital Signs [RC] PER UNIT ROUTINE Scalp Electrode [WOMSER] Per Unit Routine Peripheral IV Insertion Adult [OM.PC] Routine 11/18/20 15:30 Lactated Ringers [Ringers, Lactated] 1,000 ml IV ASDIRECTED Oxytocin/0.9 % Sodium Chloride [Oxytocin 30 Unit/500 ML-NS] 30 unit in 500 ml IV TITRATE Oxytocin/Lactated Ringers [Pitocin in LR 30 Units/500 ML] 30 unit in 500 ml IV TITRATE Medication Administration Instruction [OM.PC] Q3H 11/18/20 Dinner Clear Liquid Diet [DIET] Clear Liquid Diet [DIET] 11/19/20 01:36 Notify Provider Vital Signs [RC] ASDIRECTED Acetaminophen [Tylenol Extra Strength] 1,000 mg PO Q4H PRN Acetaminophen [Tylenol Extra Strength] 500 mg PO Q4H PRN Benzocaine/Menthol [Dermoplast Pain Relief 20%-0.5% [place]] 78 gm TOP ASDIRECTED PRN Docusate Sodium [Colace] 100 mg PO BID PRN Ibuprofen [Motrin] 400 mg PO Q4H PRN Ibuprofen [Motrin] 800 mg PO Q6H PRN Lanolin [Lansinoh HPA] See Dose Instructions TOP ASDIRECTED PRN Ondansetron [Zofran] 4 mg IVPUSH Q6H PRN bisacodyL [Dulcolax] 10 mg RECTAL ONETIME PRN oxyCODONE 5 mg PO Q2H PRN witch Eve [Tucks] 1 pad TOP ASDIRECTED PRN 11/19/20 01:37 Patient Status [ADT] Routine May Shower [RC] ASDIRECTED Up ad [place] [RC] ASDIRECTED Vital Signs [RC] PER UNIT ROUTINE Assess Lochia [WOMSER] Per Unit Routine Assess Uterine Involution [WOMSER] Per Unit Routine Ice Therapy [OM.PC] Per Unit Routine Perineal Care [OM.PC] Per Unit Routine Peripheral IV Discontinue [OM.PC] Routine 11/19/20 01:38 Cooling Warming Measures [RC] ASDIRECTED 11/19/20 Breakfast Regular Diet [DIET] 11/20/20 05:11 HEMOGLOBIN/HEMATOCRIT,HH [HEME] Timed - Assessment Assessment:: PPD 0 status post - Plan Plan:: Continue PP cares
[2020-11-19] MEDS: Acetaminophen 500 MG Tab PO PRN ×2 (13:26→20:34)
[2020-11-20] MEDS: Ibuprofen 800 MG Tab PO PRN (01:04)
--- NOTE | 2020-11-20 11:40 | PCM.PNPP ---
- General Info Date of Service: 11/20/20 Functional Status: Reports: Pain Controlled, Tolerating Diet, Ambulating, Urinating - Review of Systems General: Denies: Fever, Weakness Pulmonary: Denies: Shortness of Breath Cardiovascular: Denies: Chest Pain, Palpitations, Lightheadedness Gastrointestinal: Denies: Abdominal Pain, Nausea, Vomiting Genitourinary: Denies: Flank Pain Musculoskeletal: Reports: No Symptoms Skin: Reports: No Symptoms Neurological: Reports: No Symptoms Psychiatric: Reports: No Symptoms - General Info Date of Service: 11/20/20 - Patient Data Vital Signs - Most Recent: Last Vital Signs Temp 36.1 C 11/20/20 08:50 Pulse 59 L 11/20/20 08:50 Resp 16 11/20/20 08:50 BP 107/62 11/20/20 08:50 Pulse Ox 99 11/20/20 08:50 Weight - Most Recent: 88.995 kg Lab Results - Last 24 Hours: Laboratory Results - last 24 hr 11/20/20 Range/Units 05:52 Hgb 11.9 L (12.0-16.0) g/dL Hct 36.5 (36.0-46.0) % Med Orders - Current: Current Medications Acetaminophen (Tylenol Extra Strength) 500 mg PO Q4H PRN PRN Reason: Pain Acetaminophen (Tylenol Extra Strength) 1,000 mg PO Q4H PRN PRN Reason: Pain Last Admin: 11/19/20 20:34 Dose: 1,000 mg Documented by: Benzocaine/Menthol (Dermoplast Pain Relief 20%-0.5% [place]) 78 gm TOP ASDIRECTED PRN PRN Reason: Perineal Comfort Measure Bisacodyl (Dulcolax) 10 mg RECTAL ONETIME PRN PRN Reason: Constipation Butorphanol Tartrate (Stadol) 1 mg IVPUSH Q1H PRN PRN Reason: Pain Carboprost Tromethamine (Hemabate Ds) 250 mcg IM ASDIRECTED PRN PRN Reason: Post Hemorrhage Docusate Sodium (Colace) 100 mg PO BID PRN PRN Reason: Constipation Emollient Ointment (Lansinoh Hpa) 0 gm TOP ASDIRECTED PRN PRN Reason: Sore Nipples Oxytocin/Sodium Chloride (Oxytocin 30 Unit/500 Ml-Ns) 30 unit in 500 mls @ 999 mls/hr IV TITRATE CHAUNCEY Tranexamic Acid 1,000 mg/ (Sodium Chloride) 110 mls @ 660 mls/hr IV ONETIME PRN PRN Reason: Bleeding Oxytocin/Lactated Ringer's (Pitocin In Lr 30 Units/500 Ml) 30 unit in 500 mls @ 2 mls/hr IV TITRATE CHAUNCEY; Protocol Last Titration: 11/19/20 01:16 Dose: 999 munits/min, 999 mls/hr Documented by: Lactated Ringer's (Ringers, Lactated) 1,000 mls @ 150 mls/hr IV ASDIRECTED CHAUNCEY Last Admin: 11/18/20 19:22 Dose: 150 mls/hr Documented by: Ibuprofen (Motrin) 400 mg PO Q4H PRN PRN Reason: Pain Ibuprofen (Motrin) 800 mg PO Q6H PRN PRN Reason: Pain Last Admin: 11/20/20 01:04 Dose: 800 mg Documented by: Lidocaine HCl (Xylocaine 1%) 50 ml INJECT ONETIME PRN PRN Reason: Laceration repair Methylergonovine Maleate (Methergine) 0.2 mg IM ASDIRECTED PRN PRN Reason: Post Hemorrhage Misoprostol (Cytotec) 200 mcg PO ONETIME PRN PRN Reason: Post Hemorrhage Ondansetron HCl (Zofran) 4 mg IVPUSH Q6H PRN PRN Reason: Nausea/Vomiting Ondansetron HCl (Zofran) 4 mg IVPUSH Q6H PRN PRN Reason: Nausea/Vomiting Oxycodone HCl (Oxycodone) 5 mg PO Q2H PRN PRN Reason: Pain Sodium Chloride (Saline Flush) 10 ml FLUSH ASDIRECTED PRN PRN Reason: Keep Vein Open Sodium Chloride (Saline Flush) 2.5 ml FLUSH ASDIRECTED PRN PRN Reason: Keep Vein Open Sodium Chloride (Normal Saline) 10 ml IV ASDIRECTED PRN PRN Reason: IV Use Sterile Water (Sterile Water For Irrigation) 1,000 ml IRR ASDIRECTED PRN PRN Reason: delivery Terbutaline Sulfate (Brethine) 0.25 mg SUBCUT ASDIRECTED PRN PRN Reason: Tacysystole Witch Eve (Tucks) 1 pad TOP ASDIRECTED PRN PRN Reason: comfort care Discontinued Medications Fentanyl (Sublimaze) Confirm Administered Dose 100 mcg .ROUTE .STK-MED ONE Stop: 11/18/20 19:15 Fentanyl/Bupivacaine HCl (Fentanyl/Bupivacaine/Ns 2 Mcg-0.125% 250 Ml) Confirm Administered Dose 250 mls @ as directed .ROUTE .STK-MED ONE Stop: 11/18/20 19:16 - Infant Interaction Support Person: - Recovery Exam Fundal Tone: Firm Fundal Level: 3 Fingerbreadths Below Umbilicus Fundal Placement: Midline Lochia Amount: Scant Lochia Color: Rubra/Red Perineum Description: Intact, Minimal Bruising/Swelling Bladder Status: Voiding Urinary Elimination: Voided - Exam General: Alert, Oriented Lungs: Normal Respiratory Effort Cardiovascular: Regular Rate, Regular Rhythm GI/Abdominal Exam: Normal Bowel Sounds, Soft Extremities: Pedal Edema (trace). No: Chaya's Sign Skin: Warm, Dry, Intact Neurological: No New Focal Deficit Psy/Mental Status: Alert, Normal Affect, Normal Mood - Problem List & Annotations (1) Vaginal delivery SNOMED Code(s): 168967550 Code(s): O80 - ENCOUNTER FOR FULL-TERM UNCOMPLICATED DELIVERY Status: Acute Current Visit: No - Problem List Review Problem List Initiated/Reviewed/Updated: Yes - My Orders Last 24 Hours: My Active Orders 11/20/20 11:31 Ready for Discharge [RC] PER UNIT ROUTINE - Assessment Assessment:: PPD 1 status post - Plan Plan:: Patient ready to go home.Discharge instructions reviewed. Discharge to home with [facility].
== END 2020-11-20 12:05 | disposition home or self-care (01) | DRG 560 ==
LOC: MW.OB 12:30 → OBSVTOIN 15:22 → MW.OB 15:22
PROVIDERS: ADMIT Obstetrics & Gynecology; ATTEND Obstetrics & Gynecology
PROC: 10E0XZZ Delivery of Products of Conception, External Approach (ICD-10-PCS; principal; 2020-11-18)
PROC: 10907ZC Drainage of Amniotic Fluid, Therapeutic from Products of Conception, Via Natural or Artificial Opening (ICD-10-PCS; 2020-11-18)
PROC: 0UQMXZZ Repair Vulva, External Approach (ICD-10-PCS; 2020-11-18)
PROC: 3E0R3BZ Introduction of Anesthetic Agent into Spinal Canal, Percutaneous Approach (ICD-10-PCS; 2020-11-18)
PROC: 00HU33Z Insertion of Infusion Device into Spinal Canal, Percutaneous Approach (ICD-10-PCS; 2020-11-18)
DX: O70.0 First degree perineal laceration during delivery (principal); Z37.0 Single live birth; Z3A.39 39 weeks gestation of pregnancy
CPT/HCPCS: 36415; 51702; 59025; 59409; 82803; 85014; 85018; 85027; 86592; 86850; 86900; 86901; A9270-GY; J3010; J7120

== ENCOUNTER 2023-07-25 09:08 | Inpatient (IN) | payer BC ==
[2023-07-25] MEDS: Lactated Ringers 1,000 ML IV SCH ×4 (09:30→14:40)
[2023-07-25] MEDS ORDERED: Ondansetron 4 MG/2 ML SDV IVPUSH PRN (09:33)
[2023-07-25] MEDS ORDERED: Carboprost Tromethamine 250 MCG/1 mL Vial IM PRN (09:33)
[2023-07-25] MEDS ORDERED: Water For Irrigation,Sterile 1,000 ML Container IRR PRN (09:33)
[2023-07-25] MEDS ORDERED: Lidocaine 1% 50 ML MDV INJECT PRN (09:33)
[2023-07-25] MEDS ORDERED: Sodium Chloride 0.9% 2.5 ML Syringe FLUSH PRN (09:33)
[2023-07-25] MEDS ORDERED: Terbutaline 1 MG/ML SDV SUBCUT PRN (09:33)
[2023-07-25] MEDS ORDERED: Tranexamic Acid IN NACL,ISO-OS 1,000 MG in Premix Bag 1 BAG IV PRN ×2 (09:33)
[2023-07-25] MEDS ORDERED: Sodium Chloride 0.9% 20 ML SDV IV PRN (09:33)
[2023-07-25] MEDS ORDERED: Methylergonovine 0.2 MG/1 ML Amp IM PRN (09:33)
[2023-07-25] MEDS ORDERED: Sodium Chloride 0.9% 10 ML Syringe FLUSH PRN (09:33)
[2023-07-25] MEDS ORDERED: Misoprostol 200 MCG Tab PO PRN (09:33)
[2023-07-25] MEDS ORDERED: Oxytocin/0.9 % Sodium Chloride 30 UNIT/500 ML BAG IV SCH ×2 (09:45)
[2023-07-25 09:56] LABS: HEMATOCRIT 32.7 % (37.0-47.0); HEMOGLOBIN 10.7 g/dL (12.0-16.0); MEAN CORPUSCULAR HGB CONC 32.7 g/dL (32.0-36.0); MEAN CORPUSCULAR VOLUME 79.4 fL (83.0-99.0); MEAN PLATELET VOLUME 9.2 fL (9.4-12.3); PLATELET COUNT,PLT 259 K/uL (150-400); RED BLOOD CELL COUNT 4.12 M/uL (4.10-5.30); WHITE BLOOD CELL COUNT,WBC 7.56 K/uL (3.9-11.3)
[2023-07-25] MEDS ORDERED: Bupivacaine 0.5% 10 ML SDV ONE (13:20)
[2023-07-25] MEDS ORDERED: Ropivacaine/PF 400 MG/200 ML PCA ONE (13:20)
[2023-07-25] MEDS: Phenylephrine HCl 0.5 MG/5 ML AMP IVPUSH PRN ×2 (14:14→14:17)
[2023-07-25] MEDS ORDERED: ePHEDrine 50 MG/ML SDV IVPUSH PRN ×2 (14:36)
[2023-07-25] MEDS ORDERED: Ropivacaine HCl/PF 400 MG in Premix Bag 1 BAG EPIDUR SCH (14:45)
[2023-07-25] MEDS ORDERED: Docusate Sodium 100 MG Cap PO PRN (20:26)
[2023-07-25] MEDS ORDERED: oxyCODONE 5 MG Tab PO PRN (20:26)
[2023-07-25] MEDS ORDERED: Benzocaine/Menthol 20%-0.5% Spray 78 GM Cannister TOP PRN (20:26)
[2023-07-25] MEDS ORDERED: Witch Hazel Medicated Pads 40/Jar TOP PRN (20:26)
[2023-07-25] MEDS ORDERED: Bisacodyl 10 MG Supp RECTAL PRN (20:26)
[2023-07-25] MEDS ORDERED: Lanolin 100% Cream 7 GM Tube TOP PRN (20:26)
[2023-07-25 20:50] LABS: PH,UMBILICAL ARTERIAL 7.242 (7.18-7.38); PH,UMBILICAL VENOUS 7.251 (7.25-7.45)
[2023-07-25] MEDS: Acetaminophen 500 MG Tab PO PRN (23:37)
[2023-07-26] MEDS: Ibuprofen 800 MG Tab PO PRN ×3 (01:21→18:33)
[2023-07-26] MEDS: Acetaminophen 500 MG Tab PO PRN (05:32)
[2023-07-26 06:06] LABS: HEMATOCRIT 26.5 % (37.0-47.0); HEMOGLOBIN 8.8 g/dL (12.0-16.0)
== END 2023-07-26 20:45 | disposition home or self-care (01) | DRG 560 ==
LOC: MW.OB 09:08 → OBSVTOIN 19:44 → MW.OB 22:51
PROVIDERS: ADMIT Obstetrics & Gynecology; ATTEND Obstetrics & Gynecology
PROC: 10E0XZZ Delivery of Products of Conception, External Approach (ICD-10-PCS; principal; 2023-07-25)
PROC: 0UQMXZZ Repair Vulva, External Approach (ICD-10-PCS; 2023-07-25)
PROC: 10H07YZ Insertion of Other Device into Products of Conception, Via Natural or Artificial Opening (ICD-10-PCS; 2023-07-25)
PROC: 3E033VJ Introduction of Other Hormone into Peripheral Vein, Percutaneous Approach (ICD-10-PCS; 2023-07-25)
PROC: 3E0R3BZ Introduction of Anesthetic Agent into Spinal Canal, Percutaneous Approach (ICD-10-PCS; 2023-07-25)
PROC: 00HU33Z Insertion of Infusion Device into Spinal Canal, Percutaneous Approach (ICD-10-PCS; 2023-07-25)
DX: O48.0 Post-term pregnancy (principal); Z37.0 Single live birth; O99.02 Anemia complicating childbirth; O70.0 First degree perineal laceration during delivery; D64.9 Anemia, unspecified; Z3A.40 40 weeks gestation of pregnancy
CPT/HCPCS: 01967; 36415; 51702; 59409; 82803; 85014; 85018; 85027; 86592; 86850; 86900; 86901; A9270-GY; J2371; J2405; J2590; J2795; J3490; J7120; S0020